=== PATIENT | female | born 1985 | race Caucasian/White ===

== ENCOUNTER 2021-09-24 16:41 | Outpatient (CLI) | payer OTHER | END 2021-09-26 10:44 | disposition still patient (30) | LOC: OBS/DEL 16:41 | PROVIDERS: ATTEND Obstetrics & Gynecology | DX: O26.843 Uterine size-date discrepancy, third trimester (principal); O36.8130 Decreased fetal movements, third trimester, not applicable or unspecified; O36.8310 Maternal care for abnormalities of the fetal heart rate or rhythm, first trimester, not applicable or unspecified; Z3A.37 37 weeks gestation of pregnancy ==